=== PATIENT | female | born 1985 | race Caucasian/White ===

== ENCOUNTER 2024-08-16 17:04 | Emergency (ER) | payer OTHER, SELFPAY ==
[2024-08-16 17:06] VITALS: BP 151/92
[2024-08-16 17:29] LABS: % Basophils 0.3 % (0-2); % Eosinophils 0.8 % (0-6); % Immature Granulocytes 0.2 % (0-0.5); % Lymphocytes 29.1 % (20.5-51.1); % Monocytes 4.6 % (1.7-9.3); Absolute Eosinophils 0.1 10^3/uL (0-0.7); Absolute Lymphocytes 1.8 10^3/uL (1.2-3.4); Absolute Monocytes 0.3 10^3/uL (0.1-0.6); Absolute Neutrophils 4.1 10^3/uL (1.4-6.5); Hematocrit 35.9 % (37.0-47.0); Hemoglobin 12.7 g/dL (12.0-16.0); Mean Corp Hgb Conc. 35.4 g/dL (33.0-37.0); Mean Corpuscular Hgb 31.5 pg (27.0-31.0); Mean Corpuscular Volume 89.1 fL (81.0-99.0); Mean Platelet Volume 9.7 fL (7.4-10.4); Nucleated Red Blood Cells % 0 %; Platelet Count 221 10^3/uL (130-400); Red Blood Cell Count 4.03 10^6/uL (4.20-5.40); White Blood Cell Count 6.3 10^3/uL (4.8-10.8)
[2024-08-16 17:45] LABS: ALT (SGPT) 20 U/L (0-35); AST (SGOT) 27 U/L (14-36); Albumin 4.3 g/dl (3.5-5.0); Alkaline Phosphatase 43 U/L (38-126); Blood Urea Nitrogen 16 mg/dl (7-17); Calcium 10.1 mg/dl (8.4-10.2); Carbon Dioxide 23 mmol/L (22-30); Chloride 102 mmol/L (98-107); Glucose 144 mg/dl (70-99); Lipase 120 U/L (23-300); Potassium 3.3 mmol/L (3.5-5.1); Sodium 135 mmol/L (135-145); Total Bilirubin 0.8 mg/dl (0.2-1.3); Total Protein 6.7 g/dl (6.3-8.2); eGFR > 60.00
--- NOTE | 2024-08-16 17:52 | ED.GENMED ---
History of Present Illness
<Kayden Bond MD, Resident - Last Filed: 08/16/24 22:51>
General
Chief Complaint: Abdominal Pain
Source: patient and records
Time Seen by Provider: 08/16/24 17:51
History of Present Illness
History of Present Illness:
Cora Miller, 39-year-old female, developed acute sharp left lower quadrant abdominal pain and cramping this evening. She had a bowel movement at the time and passed dark hard stools. Now with nausea and weakness. Denies any preceding illnesses or
symptoms. Shared food with family earlier in the day; others asymptomatic. Denies similar episodes in the past. No prior history of diverticulitis, appendicitis, colitis, IBD, other gastrointestinal diseases or prior abdominal/pelvic surgeries.
Past History
<Kayden Bond MD, Resident - Last Filed: 08/16/24 22:51>
Past History
ED Past Medical History: Other (pioderma fascialis; migraine disorder; generalized anxiety disorder)
ED Past Surgical History: None
Social History
Tobacco: Non-smoker
Alcohol: Occasional
Drug: None
Personal:
Living: with family
Review of Systems
<Kayden Bond MD, Resident - Last Filed: 08/16/24 22:51>
Review of Systems
All Other Systems: ROS reviewed and negative except as documented in HPI and ROS
ABD/GI: Reports abdominal pain (LLQ), nausea and anorexia
Phy Exam
<Kayden Bond MD, Resident - Last Filed: 08/16/24 22:51>
General Physical Exam
General Presentation: well appearing and no apparent distress
General Skin: warm and dry
General Habitus: normal
General Mental: alert
General Hydration: appears well hydrated
ENT Exam
ENT Exam: EOMI, pharynx normal, neck supple and normocephalic
Eye Exam
Eye Exam: PERRL, cornea clear and conjunctiva normal
Cardiovascular Exam
Cardiovascular Exam: regular rate/rhythm, no edema, no murmur and normal peripheral pulses
Pulmonary Exam
Pulmonary Exam: lungs clear, no respiratory distress, no rales, no crackles, no rhonchi, no stridor, no wheezing and no cough
Gastrointestinal Exam
Gastrointestinal Exam: normal bowel sounds, soft, no organomegaly, no pulsatile mass, non distended and tender (LLQ; lower diffusely)
Neurological Exam
Neurological Exam: alert, oriented x3, no motor deficits and speech normal
Musculoskeletal Exam
Musculoskeletal Exam: full ROM and no edema
Skin Exam
Skin Exam: normal color, warm/dry, no rash and no petechia
Psychiatric Exam
Psychiatric Exam: normal mood/affect
Course
<[facility] Bond MD, Resident - Last Filed: 08/16/24 22:51>
Orders/Labs/Results
Orders:
Orders
08/16/24 17:23
Complete Blood Count/With Diff Urgent
Comprehensive Metabolic Panel Urgent
HCG, Serum Qualitative Screen Urgent
Comment: ADD ON
Lipase Urgent
08/16/24 18:20
Add On- LAB Urgent
Tests Added?: HCG
CT Abd/pel W Iv And Oral Contr Urgent
Comment:
Reason For Exam: LLQ abdominal pain
Iohexol [Omnipaque] See Protocol PO NOW STA
08/16/24 18:55
Morphine Sulfate 4 mg IV NOW STA
Ondansetron Injectable [Zofran] 4 mg IV NOW STA
08/16/24 19:56
Ondansetron Injectable [Zofran] 4 mg IV NOW STA
08/16/24 19:57
Ondansetron Injectable [Zofran] 4 mg .ROUTE .[facility]
08/16/24 20:02
Urinalysis Reflex To Culture Urgent
Date Specimen was Collected: 08/16/24
Time Specimen was Collected: 17:12
Urine Microscopic Reflex Cult Urgent
08/16/24 22:07
Lactic Acid Q4H
Comment: CANCEL 2nd LACTIC ACID IF 1st LACTIC ACID IS LESS THAN 2
Abnormal Lab Results
08/16/24 08/16/24 08/16/24
17:23 20:02 22:07
RBC 4.03 L 10^6/uL
(4.20-5.40)
Hct 35.9 L %
(37.0-47.0)
MCH 31.5 H pg
(27.0-31.0)
Potassium 3.3 L mmol/L
(3.5-5.1)
Glucose 144 H mg/dl
(70-99)
Lactic Acid < 0.5 L mmol/L
(0.7-2.0)
Leukocyte Esterase Rfl Trace A
(Negative)
08/16/24 17:23
08/16/24 17:23
Vital Signs
Initial and Last Documented VS:
Initial Vital Signs
Temp Pulse Resp BP Pulse Ox
97.6 F 94 20 151/92 100
08/16/24 17:06 08/16/24 17:06 08/16/24 17:06 08/16/24 17:06 08/16/24 17:06
Last Documented Vital Signs
Temp Pulse Resp BP Pulse Ox
97.6 F 94 20 123/78 100
08/16/24 17:06 08/16/24 17:06 08/16/24 17:06 08/16/24 20:02 08/16/24 19:54
Rosalialt;Cresencio Redman, DO - Last Filed: 08/16/24 22:44>
Orders/Labs/Results
Orders:
Orders
08/16/24 17:23
Complete Blood Count/With Diff Urgent
Comprehensive Metabolic Panel Urgent
HCG, Serum Qualitative Screen Urgent
Comment: ADD ON
Lipase Urgent
08/16/24 18:20
Add On- LAB Urgent
Tests Added?: HCG
CT Abd/pel W Iv And Oral Contr Urgent
Comment:
Reason For Exam: LLQ abdominal pain
Iohexol [Omnipaque] See Protocol PO NOW STA
08/16/24 18:55
Morphine Sulfate 4 mg IV NOW STA
Ondansetron Injectable [Zofran] 4 mg IV NOW STA
08/16/24 19:56
Ondansetron Injectable [Zofran] 4 mg IV NOW STA
08/16/24 19:57
Ondansetron Injectable [Zofran] 4 mg .ROUTE .[facility]
08/16/24 20:02
Urinalysis Reflex To Culture Urgent
Date Specimen was Collected: 08/16/24
Time Specimen was Collected: 17:12
Urine Microscopic Reflex Cult Urgent
08/16/24 22:07
Lactic Acid Q4H
Comment: CANCEL 2nd LACTIC ACID IF 1st LACTIC ACID IS LESS THAN 2
Abnormal Lab Results
08/16/24 08/16/24 08/16/24
17:23 20:02 22:07
RBC 4.03 L 10^6/uL
(4.20-5.40)
Hct 35.9 L %
(37.0-47.0)
MCH 31.5 H pg
(27.0-31.0)
Potassium 3.3 L mmol/L
(3.5-5.1)
Glucose 144 H mg/dl
(70-99)
Lactic Acid < 0.5 L mmol/L
(0.7-2.0)
Leukocyte Esterase Rfl Trace A
(Negative)
08/16/24 17:23
08/16/24 17:23
Vital Signs
Initial and Last Documented VS:
Initial Vital Signs
Temp Pulse Resp BP Pulse Ox
97.6 F 94 20 151/92 100
08/16/24 17:06 08/16/24 17:06 08/16/24 17:06 08/16/24 17:06 08/16/24 17:06
Last Documented Vital Signs
Temp Pulse Resp BP Pulse Ox
97.6 F 94 20 123/78 100
08/16/24 17:06 08/16/24 17:06 08/16/24 17:06 08/16/24 20:02 08/16/24 19:54
<Kayden Bond MD, Resident - Last Filed: 08/16/24 22:51>
MDM/Problems Addressed
Differential Diagnosis Includes:
diverticulitis; colitis; spasms; ovarian torsion; pyelonephritis
MDM/Problems Addressed:
CT AP consistent with colitis. Lactate, WBC count and other blood work within normal limits. Vitals stable and patient feels improved with medications. Likely that this is infectious; less likely to be ischemic. Discussed antibiotics and outpatient
management. Patient agreeable. Recommended follow-up with primary and consult gastroenterology outpatient. Discussed when to return to the emergency; instructions given.
<Kayden Bond MD, Resident - Last Filed: 08/16/24 22:51>
*Critical Care Note
Total Time (30-74mins, 75-104mins- exclusive of procedures): Not Applicable
ED Attending Note
<Kayden Bond MD, Resident - Last Filed: 08/16/24 22:51>
-
Portions of this chart may have been created with voice recognition software.� Occasional wrong word or��sound alike� substitutions may have occurred due to the inherent limitations of voice recognition software.
<Cresencio Redman, DO - Last Filed: 08/16/24 22:44>
ED Attending Note
Patient seen and examined by attending physician: Yes
I performed a history and physical exam of patient and discussed management with resident, I reviewed resident's note and agree with documented findings and plan of care.: Yes
ED Attending Note:
I have reviewed and agree with history and treatment plan by Dr. Kayden Bond. My exam revealed 39-year-old female with left lower quadrant abdominal tenderness. Afebrile. Will evaluate with CT abdomen pelvis. CT scan concerning for colitis,
likely infectious versus inflammatory. Doubt ischemic colitis. Lactate negative, normal white blood cell count. Will discharge to follow-up with gastroenterology and treat with Augmentin.
Discharge Plan
Departure
Patient Disposition: Home (Routine Discharge)
Date of Disposition: 08/16/24
Time of Disposition: 22:47
Patient with high blood pressure during this ER visit?: No
Discharge Problem:
Colitis
Instructions: Colitis, [place] Diet
Prescriptions:
New
amoxicillin-pot clavulanate 875-125 mg tablet
1 tab PO BID 10 Days Qty: 20 0RF
No Action
rizatriptan 10 MG tablet,disintegrating
10 mg PO BIDPRN PRN (Reason: migraines)
albuterol sulfate 1 PUFF HFA aerosol inhaler
2 puff inhalation R Q4HPRN PRN (Reason: sob)
spironolactone 50 MG tablet
100 mg PO DAILY
bupropion HCl 150 MG tablet extended release 24 hr
150 mg PO DAILY
ondansetron HCl 4 MG tablet
8 mg PO TIDPRN PRN (Reason: nausea from migraines)
ibuprofen 400 MG tablet
400 mg PO Q4HPRN PRN (Reason: mild pain)
hydrocodone-acetaminophen 1 TABLET tablet
1 tab PO Q4HPRN PRN (Reason: severe pain) Qty: 12 0RF
oxycodone-acetaminophen 5 MG/325 MG tablet
1 tab PO Q6HPRN PRN (Reason: pain) Qty: 10 0RF
amoxicillin-pot clavulanate 1 TABLET tablet
1 tab PO Q12 Qty: 20 0RF
Referrals:
UNKNOWN - PT DOES,NOT KNOW [Family Provider] -
Interventions
Interventions:
*Risk Screen - Suicide Last Done: 08/16/24 19:03
*General Assessment Last Done: 08/16/24 17:11
*Neglect/Abuse Screening Last Done: 08/16/24 19:03
ED- Fall Risk Assessment Last Done: 08/16/24 19:03
*ED COVID-19 Vaccine History Last Done: 08/16/24 19:03
SF-Vwurzf-Stvdpuyejd Assessment Last Done: 08/16/24 19:00
Discharge Date and Time
Print Language: SAO TOMEAN
[2024-08-16 18:57] LABS: HCG, Serum Qualitative Screen Negative
[2024-08-16] MEDS: OMNIPAQUE 50 ML PO (19:00)
[2024-08-16] MEDS: ZOFRAN 4 MG IV ×2 (19:01→19:59)
[2024-08-16] MEDS: MORPHINE SULFATE 4 MG IV (19:01)
[2024-08-16 19:02] VITALS: BP 134/87
[2024-08-16 19:03] VITALS: BMI 25.1
--- NOTE | 2024-08-16 20:00 | EDRN ---
Patient finished first cup of contrast, however s complaining of nausea, got her more Zofran and gave, patient ambulated to restroom and back in bed, reports pain is much better and will start next oral contrast cup
[2024-08-16 20:02] VITALS: BP 123/78
[2024-08-16 20:11] LABS: Urine Albumin Negative (Neg - Trace); Urine Bilirubin Negative (Negative); Urine Character Clear (Clear); Urine Color Yellow; Urine Glucose Negative (Negative); Urine Ketone Negative (Negative); Urine Leukocyte Trace (Negative); Urine Nitrite Negative (Negative); Urine Occult Blood Negative (Negative); Urine Specific Gravity 1.015 (<1.030); Urine Urobilinogen Negative (Neg - 1+)
[2024-08-16 20:22] LABS: Urine Red Blood Cell None Seen /HPF (0-2); Urine White Cell 0-2 /HPF (0-5)
[2024-08-16 22:25] LABS: Lactic Acid < 0.5 mmol/L (0.7-2.0)
[2024-08-16] MEDS: AUGMENTIN 875 MG/125 MG 1 TABLET PO (22:52)
[2024-08-16 23:01] VITALS: BP 132/92
== END 2024-08-16 23:02 | disposition home or self-care (01) ==
LOC: EMR 17:04
PROVIDERS: EMERGENCY PHYSICIAN Emergency Medicine
DX: K52.9 Noninfective gastroenteritis and colitis, unspecified (principal)
CPT/HCPCS: 96374; 96375; 96376; 99284; 74177; 80053; 81003; 81015; 83605; 83690; 84703; 85025; Q9967